=== PATIENT | male | born 2000 | race African-American/Black ===

== ENCOUNTER 2023-04-25 14:13 | Emergency (ER) | payer SELFPAY ==
[2023-04-25 14:25] VITALS: BP 110/64; PULSE 47; RESP 14; TEMP 98; BMI 22.8
[2023-04-25] MEDS ORDERED: ACETAMINOPHEN 500 MG TABLET (FP) PO ONE (14:35)
[2023-04-25] MEDS ORDERED: ACETAMINOPHEN 500 MG TABLET (FP) ONE (14:42)
== END 2023-04-25 16:12 | disposition home or self-care (01) ==
LOC: FER 14:13
DX: S82.121A Displaced fracture of lateral condyle of right tibia, initial encounter for closed fracture (principal); M25.561 Pain in right knee; X50.9XXA Other and unspecified overexertion or strenuous movements or postures, initial encounter; Y93.67 Activity, basketball; Y92.310 Basketball court as the place of occurrence of the external cause
CPT/HCPCS: 73562-TC-RT-FY; 99283-25